=== PATIENT | female | born 1975 | race Caucasian/White ===

== ENCOUNTER → 2018-01-19 16:35 | Outpatient (CLI) | payer BC, SELFPAY ==
[2018-01-19 20:33] LABS: Chlamydia Trachomatis by PCR Negative (Negative); Neisserai gonorrhoeae by PCR Negative (Negative); Probe Check PASS; Sample Adequacy Control PASS; Specimen Processing Control PASS
[2018-01-27 11:13] LABS: HPV Reflexed? NOT INDICATED
== END ==
PROVIDERS: Visit Provider Obstetrics & Gynecology
DX: Z12.4 Encounter for screening for malignant neoplasm of cervix (principal); Z11.3 Encounter for screening for infections with a predominantly sexual mode of transmission
CPT/HCPCS: 87491; 87591; 88175; G0145

== ENCOUNTER → 2019-01-20 17:16 | Outpatient (CLI) | payer BC, SELFPAY ==
[2019-01-27 14:13] LABS: HPV HC, High Risk Positive (Negative)
== END ==
PROVIDERS: Visit Provider Obstetrics & Gynecology
DX: Z12.4 Encounter for screening for malignant neoplasm of cervix (principal)
CPT/HCPCS: 87624; 88175; G0145

== ENCOUNTER → 2019-02-22 15:12 | Outpatient (CLI) | payer BC, SELFPAY ==
--- NOTE | 2019-02-22 | IMM_PTH ---
PATIENT: RILEY LAL LOC: [facility] U#:[id number] AGE/SX: 49/F ROOM: RE02/22/[address]: Dr. Christofer Hidalgo MD : 1975 BED: DIS: SPEC #: [id number] RECD: 02/24/19 12:44 STATUS: HELDER REQ #: [id number] CLARI: 02/22/19 00:[address]: Christofer Hidalgo DEPT: IMMUNOHISTOCHEMISTRY RECD BY: Loren Yao ENTERED: 02/24/19 12:45 SP TYPE: IMMUNO OTHR DR: No Primary Care Phys Tissues: Endocervical Procedures: p16 (initial) KI-67 (add) PHYSICIAN & INSTITUTION [place] [id number] SPECIMEN INFORMATION: Tissue Source: ECC Clinical Info: ASCUS, positive HR-HPV Specimen Number: [id number] CPT code: 52930, 54245 METHODOLOGY: Deparaffinized sections of prefer/formalin-fixed tissue or PAP/DQ stained slides are incubated with monoclonal/polyclonal antibodies/oligonucleotide probes. Localization is made via biotin free immunoperoxidase method. Appropriate controls are performed and reacted as expected. Results on target cell population are indicated in the following table: RESULTS: ANTIBODY / CLONE RESULT P16 (E6H4) positive, focal and patchy Ki-67 (30-9) negative These tests were developed and their performance characteristics determined by [facility]. They may not have been cleared or approved by the [place]. Food and Drug Administration. The FDA has determined that such clearance or approval is not necessary. INTERPRETATION: ECC: Desquamated squamous epithelial cells with focal changes suspicious for HPV cytopathic effects. This case has been reviewed in consultation with Dr. Squires who concurs with the above diagnosis. SJ:marquis 02/25/19
--- NOTE | 2019-02-22 | ECC_PTH ---
PATIENT: RILEY LAL LOC: [facility] U#:[id number] AGE/SX: 49/F ROOM: RE02/22/[address]: Dr. Christofer Hidalgo MD : 1975 BED: DIS: SPEC #: [id number] RECD: 02/22/19 15:41 STATUS: HELDER SANDRA #: [id number] CLARI: 02/22/19 00:[address]: Christofer Hidalgo DEPT: SURGICAL PATHOLOGY RECD BY: Miles Baeza ENTERED: 02/23/19 11:34 SP TYPE: ALEXIS HERNANDEZ DR: Martha Primary Care Phys Tissues: Endocervical Procedures: Surgery Specimen Level IV HEADER OPERATION: Colposcopy PRE-OP DIAGNOSIS: ASCUS, positive HR-HPV, pap 01/20/19, LMP 02/07/19 TISSUE SUBMITTED: ECC MICROSCOPIC DIAGNOSIS ECC: Desquamated squamous epithelial cell with focal changes suspicious for HPV cytopathic effects. Fragments of benign endocervical epithelium and benign endocervical mucosa, blood and mucous. See comment. JOE:marquis 02/24/19 COMMENT Immunohistochemistry ([id number]) for surrogate HPV marker (p16) supports the above diagnosis. Case has been reviewed in consultation with Dr. Squires who concurs with the above diagnosis. IDC:AM MICROSCOPIC DESCRIPTION Slides are reviewed. GROSS DESCRIPTION Received in fixative is one container labeled with the patient's name and designated ECC. The specimen consists of multiple irregular fragments of augustin mucoid tissue that in aggregate measure 2.5 x 2.5 x 0.1 cm. The specimen is totally submitted in one cassette. / JOE:marquis 02/23/19 TC:5 CPT: 06713
== END ==
PROVIDERS: Referring Provider Obstetrics & Gynecology; Visit Provider Obstetrics & Gynecology
DX: R87.610 Atypical squamous cells of undetermined significance on cytologic smear of cervix (ASC-US) (principal)
CPT/HCPCS: 88305; 88341; 88342

== ENCOUNTER → 2020-06-26 13:12 | Outpatient (CLI) | payer BC, SELFPAY ==
[2020-07-03 18:24] LABS: HPV APTIMA, High Risk Negative (Negative); HPV Reflexed? YES, CHARGE PATIENT
== END ==
PROVIDERS: Visit Provider Student in an Organized Health Care Education/Training Program
DX: Z12.4 Encounter for screening for malignant neoplasm of cervix (principal)
CPT/HCPCS: 87624; 88175; G0145